=== PATIENT | male | born 1975 | race Caucasian/White ===

== ENCOUNTER 2021-10-13 21:07 | Observation (INO) ==
[2021-10-14] MEDS ORDERED: Naloxone 0.4 MG/ML INJ IVP PRN (01:40)
[2021-10-14] MEDS ORDERED: Ondansetron 4 MG/2 ML VIAL IVP PRN (01:40)
[2021-10-14] MEDS ORDERED: Ipratropium/Albuterol Neb 3 ML IH PRN (01:48)
[2021-10-14] MEDS: 0.9 % Sodium Chloride 1,000 ML IVC SCH ×2 (02:16→11:46)
[2021-10-14] MEDS ORDERED: Morphine Sulfate 2 MG/ML SYRINGE IVP PRN (02:35)
[2021-10-14 02:57] LABS: Bilirubin,Urine Negative (Negative); Blood,Urine Trace (Negative); Clarity,Urine Clear (Clear); Color,Urine Light-Yellow (Yellow); Glucose,Urine (UA) Normal (Normal); Ketones,Urine 20 mg/dL (Negative); Leukocyte Esterase,Urine Negative (Negative); Mucus,Urine Few per lpf (None-Few); Nitrite,Urine Negative (Negative); PH,Urine 5.5 pH Units (5.0-8.0); Protein,Urine Trace mg/dL (Neg-Trace); RBC,Urine 0-3 per hpf (0-3); Specific Gravity,Urine 1.016 (1.010-1.025); Squamous Epithelial Cell,Urine Few per hpf (None-Few); Urobilinogen,Urine Normal (Normal); WBC,Urine 0-3 per hpf (0-3)
[2021-10-14 06:43] LABS: Basophils # 0.1 K/mcL (0.0-0.2); Basophils % 0.4 %; Eosinophils # 0.2 K/mcL (0.0-0.6); Hematocrit 43.8 % (37.5-50.1); Immature Granulocytes % 0.3 % (0-4); Lymphocytes # 1.7 K/mcL (0.6-4.6); Lymphocytes % 10.3 %; Mean Corpuscular HGB Conc 29.7 g/dL (31.6-35.5); Mean Corpuscular Hemoglobin 23.8 pg (28.0-33.3); Mean Corpuscular Volume 80.2 fL (83.0-100.0); Mean Platelet Volume 11.1 fL (9.4-12.4); Monocytes # 2.2 K/mcL (0.0-1.3); Monocytes % 13.6 %; Platelet Count 358 K/mcL (140-400); Red Blood Count 5.46 M/mcL (4.19-5.50); Segmented Neutrophils % 74.4 %; White Blood Count 16.2 K/mcL (4.3-11.1)
[2021-10-14 06:59] LABS: INR 1.3; Prothrombin Time 14.2 Seconds (9.4-12.1)
[2021-10-14 07:22] LABS: BUN/Creatinine Ratio 17 (6-26); Blood Urea Nitrogen 15 mg/dL (6-20); Calcium 8.7 mg/dL (8.6-10.3); Carbon Dioxide 25 mEq/L (23-29); Chloride 104 mEq/L (98-107); Glucose 91 mg/dL (70-105); Osmolality,Calculated 286 (280-300); Potassium 3.8 mEq/L (3.5-5.1); Sodium 138 mEq/L (136-145); eGFR For African Americans > 60 (> 60); eGFR For Non-African Americans > 60 (> 60)
[2021-10-14] MEDS: Piperacillin/Tazobactam 3.375 GM in 0.9 % Sodium Chloride Mini Bag 100 ML IVPB SCH ×3 (09:08→23:38)
[2021-10-14] MEDS: Nicotine 21 MG PATCH.TD24 TD SCH (11:47)
[2021-10-14] MEDS ORDERED: Acetaminophen 325 MG TABLET PO PRN (18:17)
[2021-10-14] MEDS: Gabapentin 400 MG CAPSULE PO SCH (20:13)
[2021-10-15 02:59] LABS: Basophils # 0.1 K/mcL (0.0-0.2); Basophils % 0.5 %; Eosinophils # 0.3 K/mcL (0.0-0.6); Eosinophils % 1.9 %; Hematocrit 42.6 % (37.5-50.1); Hemoglobin 13.1 g/dL (12.9-16.9); Immature Granulocytes % 0.2 % (0-4); Lymphocytes # 2.1 K/mcL (0.6-4.6); Lymphocytes % 16.2 %; Mean Corpuscular HGB Conc 30.8 g/dL (31.6-35.5); Mean Corpuscular Hemoglobin 24.7 pg (28.0-33.3); Mean Corpuscular Volume 80.4 fL (83.0-100.0); Mean Platelet Volume 11.7 fL (9.4-12.4); Monocytes # 1.7 K/mcL (0.0-1.3); Monocytes % 12.6 %; Platelet Count 357 K/mcL (140-400); Red Cell Distribution Width 15.9 % (11.5-14.5); Segmented Neutrophils % 68.6 %; White Blood Count 13.1 K/mcL (4.3-11.1)
[2021-10-15 03:04] LABS: Blood Urea Nitrogen 13 mg/dL (6-20); Calcium 8.6 mg/dL (8.6-10.3); Carbon Dioxide 25 mEq/L (23-29); Chloride 104 mEq/L (98-107); Glucose 78 mg/dL (70-105); Magnesium 2.1 mg/dL (1.6-2.6); Osmolality,Calculated 289 (280-300); Potassium 3.7 mEq/L (3.5-5.1); Sodium 140 mEq/L (136-145)
[2021-10-15 04:11] LABS: BUN/Creatinine Ratio 15 (6-26); eGFR For African Americans > 60 (> 60); eGFR For Non-African Americans > 60 (> 60)
[2021-10-15] MEDS: Piperacillin/Tazobactam 3.375 GM in 0.9 % Sodium Chloride Mini Bag 100 ML IVPB SCH ×2 (11:57→20:57)
[2021-10-15] MEDS: Aspirin Enteric Coated 81 MG Tablet PO SCH (11:57)
[2021-10-15] MEDS: Gabapentin 400 MG CAPSULE PO SCH ×3 (11:57→20:57)
[2021-10-15] MEDS: Hydroxyurea 500 MG CAPSULE PO SCH (11:57)
[2021-10-15] MEDS: Nicotine 21 MG PATCH.TD24 TD SCH (11:58)
[2021-10-16 03:05] LABS: Basophils # 0.1 K/mcL (0.0-0.2); Basophils % 0.8 %; Eosinophils # 0.3 K/mcL (0.0-0.6); Eosinophils % 3.4 %; Hematocrit 46.7 % (37.5-50.1); Immature Granulocytes % 0.3 % (0-4); Lymphocytes # 2.4 K/mcL (0.6-4.6); Lymphocytes % 24.5 %; Mean Corpuscular Hemoglobin 24.1 pg (28.0-33.3); Mean Corpuscular Volume 80.4 fL (83.0-100.0); Mean Platelet Volume 11.2 fL (9.4-12.4); Monocytes # 1.3 K/mcL (0.0-1.3); Neutrophils # 5.7 K/mcL (1.6-8.9); Platelet Count 374 K/mcL (140-400); Red Blood Count 5.81 M/mcL (4.19-5.50); Red Cell Distribution Width 15.8 % (11.5-14.5); White Blood Count 9.8 K/mcL (4.3-11.1)
[2021-10-16 03:10] VITALS: PULSE 78
[2021-10-16 03:31] LABS: BUN/Creatinine Ratio 11 (6-26); Blood Urea Nitrogen 10 mg/dL (6-20); Calcium 9.2 mg/dL (8.6-10.3); Carbon Dioxide 29 mEq/L (23-29); Chloride 103 mEq/L (98-107); Glucose 96 mg/dL (70-105); Magnesium 2.1 mg/dL (1.6-2.6); Osmolality,Calculated 289 (280-300); Potassium 4.2 mEq/L (3.5-5.1); Sodium 140 mEq/L (136-145); eGFR For African Americans > 60 (> 60); eGFR For Non-African Americans > 60 (> 60)
[2021-10-16] MEDS: Piperacillin/Tazobactam 3.375 GM in 0.9 % Sodium Chloride Mini Bag 100 ML IVPB SCH (04:39)
[2021-10-16 07:36] VITALS: BP 121/86; TEMP 97.4; O2SAT 95
[2021-10-16] MEDS: Gabapentin 400 MG CAPSULE PO SCH (09:33)
[2021-10-16] MEDS: Aspirin Enteric Coated 81 MG Tablet PO SCH (09:33)
[2021-10-16] MEDS: Nicotine 21 MG PATCH.TD24 TD SCH (09:33)
[2021-10-16] MEDS: Hydroxyurea 500 MG CAPSULE PO SCH (09:33)
== END 2021-10-16 12:45 | disposition home or self-care (01) ==
LOC: 3ANU → SUATTDRO 10-14 00:53
PROVIDERS: ADMIT Internal Medicine; ATTEND Pharmacist

== ENCOUNTER 2021-10-27 03:20 | Inpatient (IN) ==
[2021-10-27] MEDS ORDERED: 0.9 % Sodium Chloride 1,000 ML IVC ONE (03:45)
[2021-10-27] MEDS ORDERED: *HR* FentaNYL (PF) 100 MCG/2 ML VIAL IVP ONE (03:45)
[2021-10-27] MEDS ORDERED: Ondansetron 4 MG/2 ML VIAL IVP ONE (03:45)
[2021-10-27 04:05] LABS: Basophils # 0.1 K/mcL (0.0-0.2); Basophils % 0.4 %; Eosinophils # 0.1 K/mcL (0.0-0.6); Eosinophils % 0.3 %; Hematocrit 43.4 % (37.5-50.1); Hemoglobin 13.1 g/dL (12.9-16.9); Immature Granulocytes % 0.5 % (0-4); Lymphocytes # 1.9 K/mcL (0.6-4.6); Lymphocytes % 8.7 %; Mean Corpuscular HGB Conc 30.2 g/dL (31.6-35.5); Mean Corpuscular Volume 79.6 fL (83.0-100.0); Mean Platelet Volume 10.6 fL (9.4-12.4); Monocytes # 1.5 K/mcL (0.0-1.3); Monocytes % 6.8 %; Neutrophils # 18.4 K/mcL (1.6-8.9); Platelet Count 429 K/mcL (140-400); Red Blood Count 5.45 M/mcL (4.19-5.50); Red Cell Distribution Width 16.6 % (11.5-14.5); Segmented Neutrophils % 83.3 %
[2021-10-27 04:22] LABS: Alanine Aminotransferase 21 Units/L (7-52); Albumin 4.2 g/dL (3.5-5.7); Albumin/Globulin Ratio 1.6 (1.1-2.2); Alkaline Phosphatase 67 Units/L (34-104); Aspartate Amino Transferase 15 Units/L (13-39); BUN/Creatinine Ratio 14 (6-26); Bilirubin,Direct 0.1 mg/dL (0.0-0.2); Bilirubin,Indirect 0.4 mg/dL (0.0-1.0); Bilirubin,Total 0.5 mg/dL (0.3-1.0); Blood Urea Nitrogen 14 mg/dL (6-20); Calcium 9.1 mg/dL (8.6-10.3); Carbon Dioxide 30 mEq/L (23-29); Chloride 101 mEq/L (98-107); Globulin 2.7 g/dL (2.4-3.5); Glucose 110 mg/dL (70-105); Lipase 9 Units/L (11-82); Osmolality,Calculated 285 (280-300); Potassium 4.1 mEq/L (3.5-5.1); Sodium 137 mEq/L (136-145); Total Protein 6.9 g/dL (6.4-8.9); eGFR For African Americans > 60 (> 60); eGFR For Non-African Americans > 60 (> 60)
[2021-10-27 04:53] LABS: Bilirubin,Urine Negative (Negative); Blood,Urine Negative (Negative); Clarity,Urine Clear (Clear); Color,Urine Colorless (Yellow); Glucose,Urine (UA) Normal (Normal); Ketones,Urine Negative (Negative); Leukocyte Esterase,Urine Negative (Negative); Nitrite,Urine Negative (Negative); Protein,Urine Negative (Neg-Trace); Urobilinogen,Urine Normal (Normal)
[2021-10-27] MEDS ORDERED: Piperacillin/Tazobactam 3.375 GM in 0.9 % Sodium Chloride Mini Bag 100 ML IVPB ONE (05:00)
[2021-10-27] MEDS ORDERED: Ondansetron 4 MG/2 ML VIAL IVP PRN ×4 (05:12→14:35)
[2021-10-27] MEDS ORDERED: Naloxone 0.4 MG/ML INJ IVP PRN ×3 (05:12→14:35)
[2021-10-27] MEDS ORDERED: 0.9 % Sodium Chloride 1,000 ML IVC SCH ×2 (05:15→14:00)
[2021-10-27] MEDS ORDERED: *HR* HYDROmorphone (PF) 1 MG/ML SYRINGE IVP PRN (06:17)
[2021-10-27 07:18] LABS: INR 1.2; Prothrombin Time 13.5 Seconds (9.4-12.1)
[2021-10-27] MEDS ORDERED: Piperacillin/Tazobactam 3.375 GM in 0.9 % Sodium Chloride Mini Bag 100 ML IVPB SCH ×2 (08:00→16:00)
[2021-10-27] MEDS ORDERED: *HR* Rocuronium Bromide 50 MG/5 ML VIAL ONE (08:36)
[2021-10-27] MEDS ORDERED: *HR* Propofol 200 MG/20 ML VIAL IVP ONE (08:36)
[2021-10-27] MEDS ORDERED: Lidocaine -MPF 2% 5 ML VIAL ONE (08:36)
[2021-10-27] MEDS ORDERED: *HR* Midazolam HCl 2 MG/2 ML VIAL ONE (08:36)
[2021-10-27] MEDS ORDERED: *HR* FentaNYL (PF) 100 MCG/2 ML VIAL ONE (08:36)
[2021-10-27] MEDS ORDERED: *HR* Succinylcholine 200 MG/10 ML VIAL IVP ONE (08:36)
[2021-10-27] MEDS ORDERED: Lidocaine -MPF 4% 5 ML AMPUL ONE (08:42)
[2021-10-27] MEDS ORDERED: *HR* HYDROmorphone PF 0.5 MG/0.5 ML SYRINGE IVP PRN (08:59)
[2021-10-27] MEDS ORDERED: Albuterol 2.5 MG/3 ML NEBULIZER IH PRN (08:59)
[2021-10-27] MEDS ORDERED: *HR* Meperidine 25 MG/ML SYRINGE IVP PRN (08:59)
[2021-10-27] MEDS ORDERED: Acetaminophen IV 1,000 MG/100 ML BAG IVPB ONE (10:55)
[2021-10-27] MEDS ORDERED: Ondansetron 4 MG/2 ML VIAL ONE (10:58)
[2021-10-27] MEDS ORDERED: Neostigmine Methylsulfate 3 MG/3 ML SYRINGE ONE (11:04)
[2021-10-27] MEDS ORDERED: Ketorolac 30 MG/ML VIAL ONE (11:16)
[2021-10-27] MEDS ORDERED: *HR* OxyCODONE/APAP 5/325 TABLET PO PRN (14:00)
[2021-10-27] MEDS ORDERED: *HR* Heparin 5,000 UNIT/ML VIAL SQ SCH (14:00)
[2021-10-27] MEDS ORDERED: Fluconazole 400 MG/200 ML 400 MG/200 ML BAG IVPB SCH (14:00)
[2021-10-27] MEDS ORDERED: Pantoprazole 40 MG VIAL IVP SCH (14:00)
[2021-10-27] MEDS ORDERED: Ketorolac 30 MG/ML VIAL IVP ONE ×2 (14:00→14:35)
[2021-10-27] MEDS ORDERED: Nicotine 21 MG PATCH.TD24 TD SCH (14:15)
[2021-10-27] MEDS ORDERED: Gabapentin 300 MG CAPSULE PO SCH ×2 (15:00)
[2021-10-27] MEDS: Piperacillin/Tazobactam 3.375 GM in 0.9 % Sodium Chloride Mini Bag 100 ML IVPB SCH (15:03)
[2021-10-27] MEDS: 0.9 % Sodium Chloride 1,000 ML IVC SCH (15:05)
[2021-10-27] MEDS: *HR* OxyCODONE/APAP 5/325 TABLET PO PRN (17:01)
[2021-10-27] MEDS ORDERED: Gabapentin 400 MG CAPSULE PO SCH (21:00)
[2021-10-27] MEDS: Gabapentin 400 MG CAPSULE PO SCH (21:07)
[2021-10-27] MEDS: *HR* Heparin 5,000 UNIT/ML VIAL SQ SCH (21:09)
[2021-10-28] MEDS: Piperacillin/Tazobactam 3.375 GM in 0.9 % Sodium Chloride Mini Bag 100 ML IVPB SCH ×4 (00:17→23:38)
[2021-10-28] MEDS: *HR* OxyCODONE/APAP 5/325 TABLET PO PRN (00:23)
[2021-10-28] MEDS: 0.9 % Sodium Chloride 1,000 ML IVC SCH (01:57)
[2021-10-28] MEDS: *HR* Heparin 5,000 UNIT/ML VIAL SQ SCH ×3 (05:59→23:38)
[2021-10-28] MEDS ORDERED: *HR* OxyCODONE Immed Rel 5 MG TABLET PO PRN ×2 (06:53→09:39)
[2021-10-28 07:13] LABS: Basophils # 0.1 K/mcL (0.0-0.2); Basophils % 0.2 %; Eosinophils % 0.1 %; Hematocrit 39.7 % (37.5-50.1); Hemoglobin 12.1 g/dL (12.9-16.9); Immature Granulocytes % 0.9 % (0-4); Lymphocytes # 1.2 K/mcL (0.6-4.6); Lymphocytes % 5.4 %; Mean Corpuscular HGB Conc 30.5 g/dL (31.6-35.5); Mean Corpuscular Hemoglobin 24.6 pg (28.0-33.3); Mean Corpuscular Volume 80.7 fL (83.0-100.0); Mean Platelet Volume 11.2 fL (9.4-12.4); Monocytes # 2.1 K/mcL (0.0-1.3); Monocytes % 9.5 %; Neutrophils # 18.7 K/mcL (1.6-8.9); Nucleated Red Blood Cells 0.3 /100 WBC (0); Platelet Count 452 K/mcL (140-400); Red Blood Count 4.92 M/mcL (4.19-5.50); Red Cell Distribution Width 16.8 % (11.5-14.5); Segmented Neutrophils % 83.9 %; White Blood Count 22.3 K/mcL (4.3-11.1)
[2021-10-28 07:35] LABS: BUN/Creatinine Ratio 14 (6-26); Blood Urea Nitrogen 13 mg/dL (6-20); Calcium 8.7 mg/dL (8.6-10.3); Carbon Dioxide 26 mEq/L (23-29); Chloride 106 mEq/L (98-107); Glucose 109 mg/dL (70-105); Magnesium 2.2 mg/dL (1.6-2.6); Osmolality,Calculated 289 (280-300); Phosphorous 3.6 mg/dL (2.7-4.5); Potassium 4.9 mEq/L (3.5-5.1); Sodium 139 mEq/L (136-145); eGFR For African Americans > 60 (> 60); eGFR For Non-African Americans > 60 (> 60)
[2021-10-28] MEDS: Aspirin Enteric Coated 81 MG Tablet PO SCH (08:45)
[2021-10-28] MEDS: Gabapentin 400 MG CAPSULE PO SCH ×3 (08:45→19:52)
[2021-10-28] MEDS: Pantoprazole 40 MG VIAL IVP SCH (08:47)
[2021-10-28] MEDS: Acetaminophen IV 1,000 MG/100 ML BAG IVPB SCH ×3 (08:48→18:23)
[2021-10-28] MEDS: Fluconazole 400 MG/200 ML 400 MG/200 ML BAG IVPB SCH (08:48)
[2021-10-28] MEDS ORDERED: GABAPENTIN 800 MG PO SCH (09:00)
[2021-10-28] MEDS: Nicotine 21 MG PATCH.TD24 TD SCH (09:08)
[2021-10-28] MEDS ORDERED: *HR* HYDROmorphone (PF) 1 MG/ML SYRINGE IVP PRN (09:41)
[2021-10-28] MEDS: Albuterol 2.5 MG/3 ML NEBULIZER IH SCH ×4 (10:02→20:46)
[2021-10-28] MEDS: Ketorolac 30 MG/ML VIAL IVP SCH ×2 (12:42→18:31)
[2021-10-28] MEDS: *HR* OxyCODONE Immed Rel 5 MG TABLET PO PRN ×3 (13:55→23:54)
[2021-10-29] MEDS: Albuterol 2.5 MG/3 ML NEBULIZER IH SCH ×6 (00:19→19:56)
[2021-10-29 03:06] LABS: Basophils % 0.2 %; Eosinophils # 0.1 K/mcL (0.0-0.6); Eosinophils % 0.6 %; Hematocrit 34.6 % (37.5-50.1); Immature Granulocytes % 0.4 % (0-4); Lymphocytes # 3.1 K/mcL (0.6-4.6); Lymphocytes % 21.8 %; Mean Corpuscular HGB Conc 30.1 g/dL (31.6-35.5); Mean Corpuscular Hemoglobin 24.5 pg (28.0-33.3); Mean Corpuscular Volume 81.4 fL (83.0-100.0); Mean Platelet Volume 11.1 fL (9.4-12.4); Monocytes # 1.4 K/mcL (0.0-1.3); Monocytes % 9.9 %; Neutrophils # 9.6 K/mcL (1.6-8.9); Platelet Count 513 K/mcL (140-400); Red Blood Count 4.25 M/mcL (4.19-5.50); Red Cell Distribution Width 16.8 % (11.5-14.5); Segmented Neutrophils % 67.1 %; White Blood Count 14.3 K/mcL (4.3-11.1)
[2021-10-29 03:07] LABS: Hemoglobin 10.4 g/dL (12.9-16.9)
[2021-10-29 03:19] LABS: BUN/Creatinine Ratio 9 (6-26); Blood Urea Nitrogen 9 mg/dL (6-20); Calcium 8.1 mg/dL (8.6-10.3); Carbon Dioxide 26 mEq/L (23-29); Chloride 104 mEq/L (98-107); Glucose 91 mg/dL (70-105); Magnesium 2.2 mg/dL (1.6-2.6); Osmolality,Calculated 282 (280-300); Potassium 3.9 mEq/L (3.5-5.1); Sodium 137 mEq/L (136-145); eGFR For African Americans > 60 (> 60); eGFR For Non-African Americans > 60 (> 60)
[2021-10-29] MEDS: Acetaminophen IV 1,000 MG/100 ML BAG IVPB SCH (06:46)
[2021-10-29] MEDS: *HR* Heparin 5,000 UNIT/ML VIAL SQ SCH ×3 (06:47→20:23)
[2021-10-29] MEDS: Ketorolac 30 MG/ML VIAL IVP SCH ×4 (06:47→16:22)
[2021-10-29] MEDS: *HR* OxyCODONE Immed Rel 5 MG TABLET PO PRN ×4 (07:02→20:24)
[2021-10-29] MEDS: Aspirin Enteric Coated 81 MG Tablet PO SCH (11:15)
[2021-10-29] MEDS: Gabapentin 400 MG CAPSULE PO SCH ×3 (11:15→20:23)
[2021-10-29] MEDS: Piperacillin/Tazobactam 3.375 GM in 0.9 % Sodium Chloride Mini Bag 100 ML IVPB SCH ×2 (11:16→17:30)
[2021-10-29] MEDS: Pantoprazole 40 MG VIAL IVP SCH (11:18)
[2021-10-29] MEDS: Fluconazole 400 MG/200 ML 400 MG/200 ML BAG IVPB SCH (11:20)
[2021-10-29] MEDS: Nicotine 21 MG PATCH.TD24 TD SCH (11:21)
[2021-10-30] MEDS: Albuterol 2.5 MG/3 ML NEBULIZER IH SCH ×4 (00:09→11:33)
[2021-10-30] MEDS: Piperacillin/Tazobactam 3.375 GM in 0.9 % Sodium Chloride Mini Bag 100 ML IVPB SCH ×2 (00:49→08:54)
[2021-10-30] MEDS: Ketorolac 30 MG/ML VIAL IVP SCH ×2 (00:51→06:53)
[2021-10-30] MEDS: *HR* OxyCODONE Immed Rel 5 MG TABLET PO PRN ×3 (01:03→14:16)
[2021-10-30 05:21] LABS: Basophils # 0.1 K/mcL (0.0-0.2); Basophils % 0.6 %; Eosinophils # 0.2 K/mcL (0.0-0.6); Eosinophils % 1.9 %; Hematocrit 35.2 % (37.5-50.1); Hemoglobin 10.2 g/dL (12.9-16.9); Immature Granulocytes % 0.4 % (0-4); Lymphocytes # 3.1 K/mcL (0.6-4.6); Lymphocytes % 27.2 %; Mean Corpuscular Hemoglobin 23.7 pg (28.0-33.3); Mean Corpuscular Volume 81.7 fL (83.0-100.0); Mean Platelet Volume 11.2 fL (9.4-12.4); Monocytes # 1.4 K/mcL (0.0-1.3); Neutrophils # 6.5 K/mcL (1.6-8.9); Platelet Count 592 K/mcL (140-400); Red Blood Count 4.31 M/mcL (4.19-5.50); Red Cell Distribution Width 16.8 % (11.5-14.5); Segmented Neutrophils % 57.9 %; White Blood Count 11.3 K/mcL (4.3-11.1)
[2021-10-30 05:58] LABS: BUN/Creatinine Ratio 7 (6-26); Blood Urea Nitrogen 7 mg/dL (6-20); Calcium 8.5 mg/dL (8.6-10.3); Carbon Dioxide 30 mEq/L (23-29); Chloride 104 mEq/L (98-107); Glucose 85 mg/dL (70-105); Osmolality,Calculated 285 (280-300); Phosphorous 4.2 mg/dL (2.7-4.5); Sodium 139 mEq/L (136-145); eGFR For African Americans > 60 (> 60); eGFR For Non-African Americans > 60 (> 60)
[2021-10-30] MEDS: *HR* Heparin 5,000 UNIT/ML VIAL SQ SCH (06:51)
[2021-10-30] MEDS: Gabapentin 400 MG CAPSULE PO SCH (08:54)
[2021-10-30] MEDS: Aspirin Enteric Coated 81 MG Tablet PO SCH (08:55)
[2021-10-30] MEDS: Nicotine 21 MG PATCH.TD24 TD SCH (08:56)
[2021-10-30] MEDS: Fluconazole 400 MG/200 ML 400 MG/200 ML BAG IVPB SCH (08:56)
[2021-10-30] MEDS ORDERED: Hydroxyurea 500 MG CAPSULE PO SCH (09:00)
[2021-10-30 11:34] VITALS: O2SAT 94
[2021-10-30 14:15] VITALS: BP 171/110; PULSE 74; TEMP 99
== END 2021-10-30 14:41 | disposition home or self-care (01) | DRG 710 ==
LOC: EMEROOARM 03:20 → 3ANU 03:20 → SUATTDRO 05:15 → OBSVTOIN 05:15 → 3ANU 05:25
PROVIDERS: ADMIT Internal Medicine; ATTEND Internal Medicine

== ENCOUNTER 2022-05-04 12:10 | Inpatient (IN) ==
[2022-05-04] MEDS ORDERED: Albuterol 2.5 MG/3 ML NEBULIZER IH PRN ×2 (12:45→13:50)
[2022-05-04] MEDS ORDERED: Clindamycin 900 MG/50 ML 900 MG/50 ML IV.SOLN IVPB ONE (12:45)
[2022-05-04] MEDS ORDERED: Ringers Solution, Lactated 1,000 ML IVC SCH (12:45)
[2022-05-04] MEDS ORDERED: Ondansetron 4 MG/2 ML VIAL ONE (13:31)
[2022-05-04] MEDS ORDERED: *HR* Propofol 200 MG/20 ML VIAL IVP ONE ×2 (13:31→18:08)
[2022-05-04] MEDS ORDERED: Lidocaine -MPF 2% 2 ML VIAL ONE ×2 (13:31→17:34)
[2022-05-04] MEDS ORDERED: *HR* Rocuronium Bromide 50 MG/5 ML VIAL ONE ×2 (13:31→16:26)
[2022-05-04] MEDS ORDERED: *HR* Midazolam HCl 2 MG/2 ML VIAL ONE (13:34)
[2022-05-04] MEDS ORDERED: *HR* FentaNYL (PF) 100 MCG/2 ML VIAL ONE (13:34)
[2022-05-04] MEDS ORDERED: Acetaminophen IV 1,000 MG/100 ML BAG IVPB ONE (13:37)
[2022-05-04] MEDS ORDERED: Ondansetron 4 MG/2 ML VIAL IVP PRN ×2 (13:50→20:00)
[2022-05-04] MEDS ORDERED: *HR* HYDROmorphone PF 0.5 MG/0.5 ML SYRINGE IVP PRN (13:50)
[2022-05-04] MEDS ORDERED: EPHEDrine 50 MG/ML VIAL ONE (16:24)
[2022-05-04] MEDS ORDERED: *HR* HYDROMORPHONE 2 MG/ML VIAL ONE (16:57)
[2022-05-04] MEDS ORDERED: Dextrose Gel 15 GM/37.5 ML TUBE PO PRN ×2 (20:00)
[2022-05-04] MEDS ORDERED: Naloxone 0.4 MG/ML INJ IVP PRN (20:00)
[2022-05-04] MEDS ORDERED: *HR* Dextrose 50 % in Water (Syg) 50 ML SYRINGE IVP PRN (20:00)
[2022-05-04] MEDS ORDERED: D5% in Water 1,000 ML IVC PRN (20:00)
[2022-05-04] MEDS: Piperacillin/Tazobactam 3.375 GM in 0.9 % Sodium Chloride Mini Bag 100 ML IVPB SCH (20:53)
[2022-05-04] MEDS: Ketorolac 30 MG/ML VIAL IVP SCH (20:53)
[2022-05-04] MEDS: Acetaminophen IV 1,000 MG/100 ML BAG IVPB SCH (20:54)
[2022-05-04] MEDS: Gabapentin 400 MG CAPSULE PO SCH (20:54)
[2022-05-04] MEDS: 0.9 % Sodium Chloride 1,000 ML IVC SCH (20:54)
[2022-05-05 01:47] LABS: Basophils % 0.2 %; Hematocrit 47.5 % (37.5-50.1); Hemoglobin 14.2 g/dL (12.9-16.9); Immature Granulocytes % 0.4 % (0-4); Lymphocytes # 0.5 K/mcL (0.6-4.6); Lymphocytes % 2.8 %; Mean Corpuscular HGB Conc 29.9 g/dL (31.6-35.5); Mean Corpuscular Hemoglobin 23.5 pg (28.0-33.3); Mean Corpuscular Volume 78.6 fL (83.0-100.0); Mean Platelet Volume 10.8 fL (9.4-12.4); Monocytes # 1.1 K/mcL (0.0-1.3); Monocytes % 6.5 %; Platelet Count 282 K/mcL (140-400); Red Blood Count 6.04 M/mcL (4.19-5.50); Red Cell Distribution Width 19.1 % (11.5-14.5); Segmented Neutrophils % 90.1 %; White Blood Count 17.4 K/mcL (4.3-11.1)
[2022-05-05 01:55] LABS: Neutrophils # 15.7 K/mcL (1.6-8.9)
[2022-05-05 02:11] LABS: BUN/Creatinine Ratio 13 (6-26); Blood Urea Nitrogen 14 mg/dL (6-20); Calcium 8.8 mg/dL (8.6-10.3); Carbon Dioxide 27 mEq/L (23-29); Chloride 105 mEq/L (98-107); Glucose 145 mg/dL (70-105); Magnesium 1.8 mg/dL (1.6-2.6); Osmolality,Calculated 289 (280-300); Phosphorous 2.9 mg/dL (2.7-4.5); Potassium 4.5 mEq/L (3.5-5.1); Sodium 138 mEq/L (136-145); eGFR For African Americans > 60 (> 60); eGFR For Non-African Americans > 60 (> 60)
[2022-05-05] MEDS: Piperacillin/Tazobactam 3.375 GM in 0.9 % Sodium Chloride Mini Bag 100 ML IVPB SCH ×2 (03:09→07:32)
[2022-05-05] MEDS: Ketorolac 30 MG/ML VIAL IVP SCH ×5 (03:11→21:06)
[2022-05-05] MEDS: Acetaminophen IV 1,000 MG/100 ML BAG IVPB SCH ×5 (03:11→21:06)
[2022-05-05] MEDS: 0.9 % Sodium Chloride 1,000 ML IVC SCH (06:19)
[2022-05-05] MEDS: Pantoprazole 40 MG VIAL IVP SCH (08:00)
[2022-05-05] MEDS: Gabapentin 400 MG CAPSULE PO SCH ×3 (08:01→21:06)
[2022-05-05] MEDS: *HR* FentaNYL (PF) 100 MCG/2 ML VIAL IVP PRN ×3 (13:07→23:59)
[2022-05-05] MEDS: D5% in 0.45% NACL 1,000 ML IVC SCH (17:01)
[2022-05-05] MEDS ORDERED: *HR* LORazepam 2 MG/ML VIAL IVP PRN (18:42)
[2022-05-05] MEDS ORDERED: Haloperidol Lactate 5 MG/ML VIAL IVP ONE (18:42)
[2022-05-05] MEDS: *HR* Heparin 5,000 UNIT/ML VIAL SQ SCH (18:47)
[2022-05-06] MEDS: Ketorolac 30 MG/ML VIAL IVP SCH ×2 (02:53→08:54)
[2022-05-06] MEDS: Acetaminophen IV 1,000 MG/100 ML BAG IVPB SCH ×2 (02:54→08:53)
[2022-05-06] MEDS: *HR* Heparin 5,000 UNIT/ML VIAL SQ SCH ×2 (05:22→17:46)
[2022-05-06] MEDS: D5% in 0.45% NACL 1,000 ML IVC SCH ×2 (05:26→08:55)
[2022-05-06 07:57] LABS: Basophils % 0.3 %; Eosinophils # 0.1 K/mcL (0.0-0.6); Eosinophils % 0.8 %; Hemoglobin 13.7 g/dL (12.9-16.9); Immature Granulocytes % 0.3 % (0-4); Lymphocytes # 1.9 K/mcL (0.6-4.6); Lymphocytes % 14.9 %; Mean Corpuscular HGB Conc 29.1 g/dL (31.6-35.5); Mean Corpuscular Hemoglobin 23.2 pg (28.0-33.3); Mean Corpuscular Volume 79.5 fL (83.0-100.0); Mean Platelet Volume 10.9 fL (9.4-12.4); Monocytes # 1.5 K/mcL (0.0-1.3); Monocytes % 11.4 %; Neutrophils # 9.4 K/mcL (1.6-8.9); Platelet Count 290 K/mcL (140-400); Red Blood Count 5.91 M/mcL (4.19-5.50); Red Cell Distribution Width 19.7 % (11.5-14.5); Segmented Neutrophils % 72.3 %; White Blood Count 12.9 K/mcL (4.3-11.1)
[2022-05-06 08:13] LABS: BUN/Creatinine Ratio 8 (6-26); Blood Urea Nitrogen 8 mg/dL (6-20); Carbon Dioxide 32 mEq/L (23-29); Chloride 103 mEq/L (98-107); Glucose 105 mg/dL (70-105); Magnesium 1.9 mg/dL (1.6-2.6); Osmolality,Calculated 289 (280-300); Phosphorous 2.8 mg/dL (2.7-4.5); Potassium 4.2 mEq/L (3.5-5.1); Sodium 140 mEq/L (136-145); eGFR For African Americans > 60 (> 60); eGFR For Non-African Americans > 60 (> 60)
[2022-05-06] MEDS ORDERED: Nicotine 2 MG GUM BC PRN (08:49)
[2022-05-06] MEDS ORDERED: *HR* OxyCODONE Immed Rel 5 MG TABLET PO PRN (08:52)
[2022-05-06] MEDS: Gabapentin 400 MG CAPSULE PO SCH ×3 (08:53→21:58)
[2022-05-06] MEDS: Pantoprazole 40 MG VIAL IVP SCH (08:53)
[2022-05-06] MEDS: Atomoxetine Hcl [Strattera] 60 MG Capsule PO SCH (09:49)
[2022-05-06] MEDS: BuPROPion XL (24 HR) 150 MG TABLET PO SCH (09:49)
[2022-05-06] MEDS: methocarbamoL 750 MG TABLET PO SCH ×2 (09:49→17:45)
[2022-05-06] MEDS: Ibuprofen 600 MG TABLET PO SCH ×2 (13:56→21:58)
[2022-05-06] MEDS: *HR* OxyCODONE/APAP 5/325 TABLET PO PRN ×2 (14:04→19:48)
[2022-05-07] MEDS: methocarbamoL 750 MG TABLET PO SCH ×2 (00:08→09:53)
[2022-05-07] MEDS: *HR* OxyCODONE/APAP 5/325 TABLET PO PRN ×3 (00:09→09:45)
[2022-05-07 01:46] LABS: Basophils # 0.1 K/mcL (0.0-0.2); Basophils % 0.6 %; Eosinophils # 0.2 K/mcL (0.0-0.6); Eosinophils % 1.9 %; Hematocrit 46.3 % (37.5-50.1); Hemoglobin 13.7 g/dL (12.9-16.9); Immature Granulocytes % 0.3 % (0-4); Lymphocytes # 2.9 K/mcL (0.6-4.6); Lymphocytes % 23.6 %; Mean Corpuscular HGB Conc 29.6 g/dL (31.6-35.5); Mean Corpuscular Hemoglobin 23.4 pg (28.0-33.3); Mean Corpuscular Volume 79.1 fL (83.0-100.0); Mean Platelet Volume 10.9 fL (9.4-12.4); Monocytes # 1.6 K/mcL (0.0-1.3); Monocytes % 12.9 %; Neutrophils # 7.5 K/mcL (1.6-8.9); Platelet Count 293 K/mcL (140-400); Red Blood Count 5.85 M/mcL (4.19-5.50); Red Cell Distribution Width 19.3 % (11.5-14.5); Segmented Neutrophils % 60.7 %; White Blood Count 12.4 K/mcL (4.3-11.1)
[2022-05-07 02:17] LABS: BUN/Creatinine Ratio 8 (6-26); Blood Urea Nitrogen 7 mg/dL (6-20); Calcium 9.2 mg/dL (8.6-10.3); Carbon Dioxide 28 mEq/L (23-29); Chloride 102 mEq/L (98-107); Glucose 81 mg/dL (70-105); Magnesium 1.8 mg/dL (1.6-2.6); Osmolality,Calculated 283 (280-300); Phosphorous 4.2 mg/dL (2.7-4.5); Potassium 4.5 mEq/L (3.5-5.1); Sodium 138 mEq/L (136-145); eGFR For African Americans > 60 (> 60); eGFR For Non-African Americans > 60 (> 60)
[2022-05-07] MEDS: *HR* Heparin 5,000 UNIT/ML VIAL SQ SCH (05:17)
[2022-05-07 07:48] VITALS: BP 152/92; PULSE 74; TEMP 98.2; O2SAT 95
[2022-05-07] MEDS: Ibuprofen 600 MG TABLET PO SCH (09:45)
[2022-05-07] MEDS: BuPROPion XL (24 HR) 150 MG TABLET PO SCH (09:45)
[2022-05-07] MEDS: Gabapentin 400 MG CAPSULE PO SCH (09:45)
[2022-05-07] MEDS: Pantoprazole 40 MG VIAL IVP SCH (09:46)
[2022-05-07] MEDS: Atomoxetine Hcl [Strattera] 60 MG Capsule PO SCH (09:46)
== END 2022-05-07 13:00 | disposition home health service (06) | DRG 231 ==
LOC: SAMDAY 12:10 → 3ANU 19:57
PROVIDERS: ADMIT Surgery; ATTEND Surgery